=== PATIENT | male | born 1995 | race African-American/Black ===

== ENCOUNTER 2018-02-28 23:47 | Emergency (ER) | payer OTHER ==
[~2018-02-28] VITALS: Ht 177.8 cm; Wt 80.7 kg
--- NOTE | ~2018-02-28 | EKG ---
[address] [address] [place] [address] ELECTROCARDIOGRAM REPORT Name: BISHOP QUINTEROS Room #: DEP TONIO Figueroa#: [id number] Admission: 02/28/18 Attend Phys: Discharge: 03/01/18 Date of : [birth year] Report #: [id number] THIS REPORT FOR: //name// [facility] ED Test Date: 2018-02-28 Test Time: 23:57:13 Pat Name: BISHOP QUINTEROS Department: Room: Gender: [employer]visor: PAN : 1995 Requested By: Leora Vidal Order Number: [id number] MD: Mic Santiago Measurements Intervals [place] Rate: 73 P: 75 AR: 150 QRS: 25 QRSD: 86 T: 60 QT: 372 QTc: 410 Interpretive Statements Sinus rhythm ST elev, probable normal early repol pattern No previous ECG available for comparison Electronically Signed On 03-01-2018 9:19:53 CDT by Mic Santiago [email or web address] <ELECTRONICALLY SIGNED> By: Mic Santiago MD, [facility] 03/01/18 0919 [id number] Mic Santiago MD, FACC /EPI
[2018-03-01 00:18] LABS: ABSOLUTE NEUTROPHILS 2.8 thou/uL (1.4-8.2); BASOPHILS 0.7 % (0.0-2.0); HEMATOCRIT 44.3 % (42.0-52.0); HEMOGLOBIN 14.9 gm/dL (14.0-18.0); LYMPHOCYTES 39.2 % (24.0-44.0); MCH 30.9 pg (26.0-34.0); MCHC 33.6 g/dL (28.0-37.0); MCV 92.2 fL (80.0-100.0); MONOCYTES 10.5 % (1.0-8.0); PLATELET COUNT 151 thou/uL (150-400); POLYS 48.6 % (36.0-66.0); RDW 13.2 % (10.5-14.5); WBC 5.7 thou/uL (4.0-11.0)
[2018-03-01 00:25] LABS: ANION GAP 8 mmol/L (7-16); BUN 17 mg/dL (7-18); CALCIUM 8.8 mg/dL (8.5-10.1); CHLORIDE 105 mmol/L (98-107); CO2 28 mmol/L (21-32); CREATININE 1.2 mg/dL (0.7-1.3); GLUCOSE 114 mg/dL (74-106); POTASSIUM 3.7 mmol/L (3.5-5.1); SODIUM 141 mmol/L (136-145)
[2018-03-01 00:33] LABS: TROPONIN-I < 0.04 ng/mL (<0.06)
[2018-03-01 00:54] LABS: LARGE PLATELETS RARE
[2018-03-01] MEDS ORDERED: NORCO 5-325 TA1 EACH PO (01:12)
[2018-03-01 01:27] VITALS: BP 110/51
== END 2018-03-01 01:28 | disposition home or self-care (01) ==
LOC: ER 23:47
PROVIDERS: Emergency Medicine
DX: R07.89 Other chest pain (principal); M79.602 Pain in left arm